=== PATIENT | male | born 1990 | race Hispanic/Latino ===

== ENCOUNTER 2019-04-29 10:21 | Emergency (ER) | payer SELFPAY ==
[2019-04-29 10:25] VITALS: BP 148/93; PULSE 54; RESP 18; TEMP 37.1; O2SAT 99; BMI 26.5
[2019-04-29 11:06] LABS: Influenza A - CEPHEID Flu A NEGATIVE (NEGATIVE); Influenza B - CEPHEID Flu B NEGATIVE (NEGATIVE)
--- NOTE | 2019-04-29 11:08 | ED_ITS ---
HPI - Nausea/Vomiting/Diarrhea <DIMITRY Boothe - Last Filed: 04/29/19 20:47> General Chief complaint: Nausea/Vomiting/Diarrhea Stated complaint: flu like symptoms cant keep nothing down Time Seen by Provider: 04/29/19 11:00 Source: patient Mode of arrival: Ambulatory History of Present Illness HPI Narrative: 28-year-old male presents to the emergency department complaining of nausea, vomiting, and body aches since Tuesday. He denies any diarrhea at this time. He states he has vomited multiple times on Tuesday, a few times yesterday, and once this morning. Patient denies any belly pain, chest pain, shortness of breath, blood in his vomit, changes stools, or other concerns. He suspects he may have influenza. Related Data Previous Rx's Medication Instructions Recorded ondansetron [Zofran ODT] 4 mg SUBLINGUAL Q6HP PRN #10 odt 02/27/16 Review of Systems <DIMITRY Boothe - Last Filed: 04/29/19 20:47> Review of Systems Narrative: REVIEW OF SYSTEMS: GENERAL: Reports fatigue, see HPI. HENT: No head trauma, sore throat, or dysphagia. EYES: No loss of vision, double vision, eye pain, or irritation. CARDIOVASCULAR: No chest pain, palpitations, or orthopnea. RESPIRATORY: No shortness of breath or cough. GASTROINTESTINAL: Complains of nausea and vomiting, see HPI. GENITOURINARY: No flank pain, urinary incontinence, hesitancy, frequency, or dysuria. MUSCULOSKELETAL: No pain, weakness, or trauma. INTEGUMENTARY: No rash, lesions, or pruritus. NEURO: No numbness, tingling, memory loss, confusion, or headaches. PSYCH: No behavior or mood changes. Patient History <DIMITRY Boothe - Last Filed: 04/29/19 20:47> Medical History No significant medical problems (Acute) Social History Smoking Status: Current some day smoker Smoking Status: Current some day smoker alcohol intake frequency: 3 or more drinks per day Substance Use Type: marijuana Exam <DIMITRY Boothe - Last Filed: 04/29/19 20:47> Initial Vital Signs Initial Vital Signs: Vital Signs Temperature 98.7 F 04/29/19 10:25 Pulse Rate 54 L 04/29/19 10:25 Respiratory Rate 18 04/29/19 10:25 Blood Pressure 148/93 H 04/29/19 10:25 Pulse Oximetry 99 04/29/19 10:25 PHYSICAL EXAMINATION: GENERAL: Well groomed, alert, and cooperative. Answers questions promptly and appropriately. Vital signs noted. HENT: Normocephalic, atraumatic. Hearing intact. Oral mucosa is pink and moist. EYES: Conjunctiva pink, sclera white, no periorbital swelling. CARDIOVASCULAR: S1 and S2 sounds normal. Regular rate and rhythm, no murmurs, clicks, or bruits. No pedal edema. RESPIRATORY: Normal respiratory rate, trachea midline, airway patent. No stridor, nasal flaring or accessory muscle use. Lungs are clear in all mchugh without wheeze, rhonchi, or crackles. GASTROINTESTINAL: Bowel sounds normoactive. Abdomen is soft and non-tender. No organomegaly, no palpable masses. GENITALURINARY: No flank tenderness. MUSCULOSKELETAL: Normal gait and coordination. Equal tone and mass bilaterally. EXTREMITIES: CMS intact, no pedal edema. SKIN: Warm, dry, soft, appropriate color for ethnicity. No lesions, rashes, or wounds. NEURO: Alert and Oriented X 3. Good coordination. No ataxia, or sensory defici ts, or cognitive issues. PSYCH: Appropriate affect and mood. <Grace Wang DO - Last Filed: 05/02/19 07:53> Initial Vital Signs Initial Vital Signs: Vital Signs Temperature 98.7 F 04/29/19 10:25 Pulse Rate 54 L 04/29/19 10:25 Respiratory Rate 18 04/29/19 10:25 Blood Pressure 148/93 H 04/29/19 10:25 Pulse Oximetry 99 04/29/19 10:25 Course <DIMITRY Boothe - Last Filed: 04/29/19 20:47> Course Course Narrative: Patient was given ondansetron and a GI cocktail. He was able to tolerate over 500 mL of p.o. fluids in the emergency department. Patient did not vomit in his to to 3 hour stay. He reported feeling better after c onsumption of fluids. Orders Ordered: Discontinued Medications Al Hydrox/Mg Hydrox/Simethicone 20 ml/ Lidocaine HCl 15 ml 0 ml PO NOW ONE Stop: 04/29/19 11:57 Last Admin: 04/29/19 12:19 Dose: 35 ml Documented by: ZURI Ondansetron HCl (Zofran Odt) 4 mg SL NOW ONE Stop: 04/29/19 11:09 Last Admin: 04/29/19 11:17 Dose: 4 mg Documented by: MEISENB Vital Signs Vital signs: Vital Signs - 8 hr 04/29/19 10:25 Temperature 98.7 F Pulse Rate 54 L Respiratory Rate 18 Blood Pressure 148/93 H Pulse Oximetry 99 <Grace Wang DO - Last Filed: 05/02/19 07:53> Orders Ordered: Discontinued Medications Al Hydrox/Mg Hydrox/Simethicone 20 ml/ Lidocaine HCl 15 ml 0 ml PO NOW ONE Stop: 04/29/19 11:57 Last Admin: 04/29/19 12:19 Dose: 35 ml Documented by: ZURI Ondansetron HCl (Zofran Odt) 4 mg SL NOW ONE Stop: 04/29/19 11:09 Last Admin: 04/29/19 11:17 Dose: 4 mg Documented by: MEISENB Vital Signs Vital signs: Vital Signs - 8 hr 04/29/19 10:25 Temperature 98.7 F Pulse Rate 54 L Respiratory Rate 18 Blood Pressure 148/93 H Pulse Oximetry 99 MDM - Nausea/Vomiting/Diarrhea <DIMITRY Boothe - Last Filed: 04/29/19 20:47> Medical Records Attestation: I reviewed the patient's medical records. Lab Data Attestation: I reviewed the patient's lab results. Result diagrams: 04/29/19 12:08 04/29/19 12:08 Labs: Lab Results 04/29/19 04/29/19 04/29/19 Range/Units 10:27 12:08 12:08 WBC 9.5 (4.5-11.0) X10^3/uL RBC 5.23 (4.5-5.9) X10^6/uL Hgb 16.6 (13.5-17.5) g/dL Hct 47.4 (41-53) % MCV 90.6 (80-100) fL MCH 31.7 (26-34) PG MCHC 35.0 (30-36) % RDW 13.4 (11.6-14.8) % Plt Count 246 (150-400) X10^3/uL Neut % (Auto) 73.0 (50-75) % Lymph % (Auto) 18.5 L (25-40) % [place] % (Auto) 8.1 (3-14) % Eos % (Auto) 0.1 L (2-4) % Baso % (Auto) 0.3 (0-2) % Neut # (Auto) 6900 (0193-7999) /uL Lymph # (Auto) 1800 (3076-6179) /uL [place] # (Auto) 800 (0-900) /uL Eos # (Auto) 0 (0-450) /uL Baso # (Auto) 0 (0-100) /uL Sodium 139 (137-145) mmol/L Potassium 3.3 L (3.4-5.1) mmol/L Chloride 94 L (98-107) mmol/L Carbon Dioxide 31 (22-32) mmol/L BUN 25 H (9-20) mg/dL Creatinine 0.80 (0.66-1.25) mg/dL Estimated GFR > 60.0 (>60) mL/min BUN/Creatinine Ratio 31.3 H (6-22) Glucose 138 H (70-100) mg/dL Calcium 10.4 H (8.4-10.2) mg/dL Total Bilirubin 0.9 (0.2-1.3) mg/dL AST 22 (17-59) IU/L ALT 28 (<50) IU/L Alkaline Phosphatase 57 (38-126) U/L Total Protein 9.2 H (6.3-8.2) g/dL Albumin 5.5 H (3.5-5.0) g/dL Globulin 3.7 (1.7-4.1) g/dL Albumin/Globulin Ratio 1.5 (1.0-2.8) Lipase 32 (23-300) U/L Influenza A (RT-PCR) Flu a negative (NEGATIVE) Influenza B (RT-PCR) Flu b negative (NEGATIVE) MDM Narrative Medical decision making narrative: 28-year-old male presents emergency department complaining of nausea and vomiting for the past 3 days. There are very minor fluctuations electrolytes noted on lab work. After medication without dental trauma and a GI cocktail patient was able to tolerate a large amount of fluids and crackers. Patient's abdominal exam was unremarkable and did not indicated CT at this time. This is further supported by labs. Differential includes most likely gastroenteritis and less likely acute a bdominal etiology such as acute appendicitis (lack of white count, fever, or right lower quadrant pain), less likely gallbladder (lack of right upper quadrant pain, normal left). Patient was encouraged to follow up with his primary care provider in 1-2 weeks for re-evaluation of symptoms continue. He was discharged with nausea medication and encouraged to drink electrolyte fluids such as Gatorade. He's given very strict ED return precautions for new or worsening symptoms. Patient agreed with plan of care and verbalized understanding. <Grace Wang, DO - Last Filed: 05/02/19 07:53> Lab Data Labs: Lab Results 04/29/19 04/29/19 04/29/19 Range/Units 10:27 12:08 12:08 WBC 9.5 (4.5-11.0) X10^3/uL RBC 5.23 (4.5-5.9) X10^6/uL Hgb 16.6 (13.5-17.5) g/dL Hct 47.4 (41-53) % MCV 90.6 (80-100) fL MCH 31.7 (26-34) PG MCHC 35.0 (30-36) % RDW 13.4 (11.6-14.8) % Plt Count 246 (150-400) X10^3/uL Neut % (Auto) 73.0 (50-75) % Lymph % (Auto) 18.5 L (25-40) % [place] % (Auto) 8.1 (3-14) % Eos % (Auto) 0.1 L (2-4) % Baso % (Auto) 0.3 (0-2) % Neut # (Auto) 6900 (0063-3908) /uL Lymph # (Auto) 1800 (1314-5223) /uL [place] # (Auto) 800 (0-900) /uL Eos # (Auto) 0 (0-450) /uL Baso # (Auto) 0 (0-100) /uL Sodium 139 (137-145) mmol/L Potassium 3.3 L (3.4-5.1) mmol/L Chloride 94 L (98-107) mmol/L Carbon Dioxide 31 (22-32) mmol/L BUN 25 H (9-20) mg/dL Creatinine 0.80 (0.66-1.25) mg/dL Estimated GFR > 60.0 (>60) mL/min BUN/Creatinine Ratio 31.3 H (6-22) Glucose 138 H (70-100) mg/dL Calcium 10.4 H (8.4-10.2) mg/dL Total Bilirubin 0.9 (0.2-1.3) mg/dL AST 22 (17-59) IU/L ALT 28 (<50) IU/L Alkaline Phosphatase 57 (38-126) U/L Total Protein 9.2 H (6.3-8.2) g/dL Albumin 5.5 H (3.5-5.0) g/dL Globulin 3.7 (1.7-4.1) g/dL Albumin/Globulin Ratio 1.5 (1.0-2.8) Lipase 32 (23-300) U/L Influenza A (RT-PCR) Flu a negative (NEGATIVE) Influenza B (RT-PCR) Flu b negative (NEGATIVE) Discharge Plan Departure Patient Disposition: Home Clinical Impression: Gastroenteritis Nausea & vomiting Qualifiers: Vomiting type: unspecified Vomiting Intractability: unspecified Qualified Code(s): R11.2 - Nausea with vomiting, unspecified Discharge Date/Time: 04/29/19 13:30 Instructions: DI for Nausea -- Adult Activity Restrictions/Additional Instructions: Thank you for entrusting me with your care today. As discussed, your labs show that your potassium slightly low, I recommend drinking Gatorade or eating a ba gaudencio. Continue to drink lots of fluids such as Gatorade or Pedialyte. I prescribed you an anti nausea medication, you may use this as needed. Follow up with your primary care provider in 1-2 weeks for re-evaluation if his symptoms continue. Return emergency department for new or worsening symptoms such as severe abdominal pain, continued vomiting, high fevers, or other concerns. Prescriptions: No Action ondansetron [Zofran ODT] 4 MG tablet,disintegrating 4 mg Sublingual Q6HP PRNQty: 10 RF: 0
[2019-04-29] MEDS: ONDANSETRON 4 MG ODT SL (11:17)
[2019-04-29 12:18] LABS: Add Manual Diff / Slide Review NO; Basophils Absolute Auto 0 /uL (0-100); Basophils Percent Auto 0.3 % (0-2); Eosinophils Absolute Auto 0 /uL (0-450); Eosinophils Percent Auto 0.1 % (2-4); Hematocrit 47.4 % (41-53); Hemoglobin 16.6 g/dL (13.5-17.5); Lymphocytes Absolute Auto 1800 /uL (1100-4500); Lymphocytes Percent Auto 18.5 % (25-40); Mean Corpuscular Hemoglobin 31.7 PG (26-34); Mean Corpuscular Volume 90.6 fL (80-100); Monocytes Absolute Auto 800 /uL (0-900); Monocytes Percent Auto 8.1 % (3-14); Neutrophils Absolute Auto 6900 /uL (1500-7000); Platelet Count 246 X10^3/uL (150-400); Red Blood Cell Count 5.23 X10^6/uL (4.5-5.9); Red Cell Distribution Width 13.4 % (11.6-14.8); White Blood Cell Count 9.5 X10^3/uL (4.5-11.0)
[2019-04-29] MEDS: MAG HYDROX/ALUMINUM/SIMETH SUS 20 ML, LIDOCAINE VISCOUS 2% 15 ML PO (12:19)
[2019-04-29 12:29] LABS: Alanine Aminotransferase 28 IU/L (<50); Albumin 5.5 g/dL (3.5-5.0); Albumin Globulin Ratio 1.5 (1.0-2.8); Alkaline Phosphatase 57 U/L (38-126); Aspartate Aminotransferase 22 IU/L (17-59); BUN Creatinine Ratio 31.3 (6-22); Bilirubin Total 0.9 mg/dL (0.2-1.3); Blood Urea Nitrogen 25 mg/dL (9-20); Calcium 10.4 mg/dL (8.4-10.2); Carbon Dioxide 31 mmol/L (22-32); Chloride 94 mmol/L (98-107); Estimated Glomerular Filt Rate > 60.0 mL/min (>60); Globulin 3.7 g/dL (1.7-4.1); Glucose 138 mg/dL (70-100); HEMOLYSIS < 15 (0-50); Lipase 32 U/L (23-300); Potassium 3.3 mmol/L (3.4-5.1); Sodium 139 mmol/L (137-145); Total Protein 9.2 g/dL (6.3-8.2)
== END 2019-04-29 13:30 | disposition home or self-care (01) ==
PROVIDERS: Emergency Medicine; Emergency Provider Nurse Practitioner
DX: K52.9 Noninfective gastroenteritis and colitis, unspecified (principal)
CPT/HCPCS: 36415; 80053; 83690; 85025; 87502; 99281; 99283